=== PATIENT | female | born 1965 | race Caucasian/White ===

== ENCOUNTER 2022-06-20 15:16 | Emergency (ER) | payer OTHER ==
[2022-06-20] MEDS ORDERED: Aspirin 81 MG Tab.Chew PO ONE (16:04)
[2022-06-20] MEDS ORDERED: Sodium Chloride 0.9% 10 ML Syringe FLUSH PRN (16:04)
== END 2022-06-20 18:24 | disposition home or self-care (01) ==
LOC: JD.ED 15:16
DX: R07.89 Other chest pain (principal); Z88.1 Allergy status to other antibiotic agents; Z88.5 Allergy status to narcotic agent; Z88.6 Allergy status to analgesic agent; Z79.899 Other long term (current) drug therapy
CPT/HCPCS: 36415; 71045; 80053; 84484; 85025; 93005; 99285; A9270; J3490